=== PATIENT | male | born 1940 | race Caucasian/White ===

== ENCOUNTER → 2016-11-27 | Outpatient (CLI) | payer MEDICARE, OTHER ==
[~2016-11-27] MED LIST: ALLO300T2 PO; ATN25T PO; AZIT250T5 PO; CLOP75TA3 PO; COLE3.754 PO; IPRA12.92; NF-LISIN40 PO; NIAC1TBM27 PO; PRAM0.5T2 PO; SAXA1TBM3 PO; SITA1TBM7 PO; TIOT18CA; [UNRECOGNIZED DRUG - CODE] PO
== END ==
LOC: LAB 10:58
PROVIDERS: ATTEND Family Medicine
DX: E03.9 Hypothyroidism, unspecified (principal)
CPT/HCPCS: 36415; 84443

== ENCOUNTER 2017-03-30 17:18 | Inpatient (IN) | payer MEDICARE, OTHER ==
[~2017-03-30] VITALS: Ht 182.9 cm; Wt 101.2 kg
[2017-03-30] MEDS ORDERED: PANT40TA3 PO (17:30)
[2017-03-30] MEDS ORDERED: ATOR20TA PO (17:30)
[2017-03-30] MEDS ORDERED: METF500T4 PO ×2 (17:30)
[2017-03-30] MEDS ORDERED: ONDANSETRON 2 MG/ML (Z0FRAN) 2 ML VIAL IV ONE ×2 (17:30→18:15)
[2017-03-30] MEDS ORDERED: morphine INJ 4 MG/ML 1 ML SYRINGE IV PRN ×2 (17:35→20:50)
[2017-03-30] MEDS ORDERED: NIAC500T24 PO (17:40)
[2017-03-30] MEDS ORDERED: PIOG45TA16 PO (17:43)
[2017-03-30] MEDS ORDERED: nebulizer INH (17:44)
[2017-03-30 18:23] LABS: BASOPHILS % (AUTO) 0 % (0-2); EOSINOPHILS % (AUTO) 1 % (0-4); LYMPHOCYTES # (AUTO) 1.1 X10^3; MEAN PLATELET VOLUME 8.6 FL (6.0-9.5); MONOCYTES # (AUTO) 0.3 X10^3; MONOCYTES % (AUTO) 9 % (3-11); NEUTROPHILS # (AUTO) 2.3 X10^3; NEUTROPHILS % (AUTO) 61 % (51-67); PLATELET COUNT 172 10^3uL (150-450); WHITE BLOOD COUNT 3.76 10^3uL (4.0-11.0)
[2017-03-30 18:24] LABS: MEAN CORPUSCULAR HEMOGLOBIN 32.8 PG (26.0-34.0); MEAN CORPUSCULAR VOLUME 99 FL (80-100)
[2017-03-30 18:32] LABS: ALBUMIN 4.9 g/dL (3.4-5.0); ALKALINE PHOSPHATASE 52 U/L (38-126); ANION GAP 22.2 MEQ/L (3-15); BUN/CREATININE RATIO 20 (10-20); TOTAL PROTEIN 8.2 g/dL (6.4-8.5)
--- NOTE | 2017-03-30 18:45 | NUR ---
Report received, care assumed.
--- NOTE | 2017-03-30 18:46 | NUR ---
Report given to SIGRID Taylor. Questions answered and care relinquished.
[2017-03-30] MEDS ORDERED: NS IV 500 ML 500 ML IV SCH (19:10)
--- NOTE | 2017-03-30 19:13 | Diagnostic Imaging Report ---
CLINICAL INDICATION: Patient with chest and left shoulder pain. Patient has abdominal pain and vomiting at night. Patient reports history of ulcers and prostate cancer. EXAMS: X-ray of the chest PA view and x-ray of the abdomen supine and upright views. COMPARISONS: Chest x-ray dated 05/19/2016. FINDINGS: LUNGS/ PLEURA: Lungs are clear. There is no pneumothorax. There is no pleural effusion. MEDIASTINUM: Unremarkable. PULMONARY VASCULATURE: Unremarkable. HEART: Upper limits of normal heart size. BONES/ EXTRATHORACIC SOFT TISSUE: There are hypertrophic spurs seen throughout the thoracic spine and lumbar spine. There is a compression deformity of the L1 and L2 vertebral bodies which appears chronic. There is hypertrophic spurs involving both hips. ABDOMEN AND PELVIS: Unremarkable x-ray of the abdomen with nonobstructed bowel gas pattern. There is no evidence of abdominal free air. There is few loops of air filled small and large bowel. There are no dilated loops seen. There is no significant stool burden seen. There are no focal calcifications overlying the expected regions/ pathways of both kidneys, ureters, and bladder regions. Phleboliths seen in the right pelvis. IMPRESSION: 1: There is no radiographic evidence of acute cardiopulmonary process. 2: There is no evidence of bowel obstruction or intra-abdominal free air. There is no significant stool burden seen. Dictated by: Dictated on workstation # [id number]
--- NOTE | 2017-03-30 19:14 | Diagnostic Imaging Report ---
CLINICAL INDICATION: Patient with chest and left shoulder pain. EXAM: X-ray of left shoulder, 3 views. COMPARISON: None. FINDINGS: There is no evidence of acute fracture or dislocation. There is mild to moderately hypertrophic spurs involving the left glenoid rim and left acromioclavicular joint. There is mild spurring of the proximal left humeral head/neck junction region. IMPRESSION: 1.: There is no acute fracture or dislocation. 2: There is mild to moderate degenerative disease of the left shoulder. Dictated by: Dictated on workstation # [id number]
[2017-03-30 19:20] LABS: MAGNESIUM* 1.4 mg/dL (1.6-2.3)
[2017-03-30 19:21] LABS: CREATINE KINASE 261 U/L (55-170)
[2017-03-30 19:38] LABS: BILIRUBIN,URINE Negative (Negative); CLARITY,URINE Clear; COLOR,URINE Yellow; GLUCOSE, URINE (UA) Negative (Negative); LEUKOCYTE ESTERASE ,URINE Negative (Negative); UROBILINOGEN,URINE 0.2 mg/dL (0.2-1.0)
--- NOTE | 2017-03-30 20:11 | Diagnostic Imaging Report ---
Clinical indication: Patient with abdominal pain and vomiting at night. Patient reports a history of ulcers and prostate cancer. Exam: CT exam of the abdomen and pelvis is performed without IV or oral contrast using stone protocol. Comparisons: X-ray of the abdomen dated 03/30/2017. Findings: There is mild dependent atelectasis involving the posterior aspects of both lung bases. There are degenerative spurs involving both hips, the visualized lower thoracic spine, and the lumbar spine. The liver, spleen, pancreas, adrenal glands and gallbladder are unremarkable, as visualized. There is a 3.0 cm exophytic cyst involving the posterior inferior aspect of the left kidney. Otherwise, both kidneys are unremarkable. No hydronephrosis or urinary tract stones. There are several diverticula involving the sigmoid colon but no CT evidence of diverticulitis. There is nondilated air-fluid levels in small bowel which is nonspecific. There is no bowel wall thickening. There is no intraabdominal free air or free fluid. There is no lymphadenopathy. The bladder is partially fluid-filled. There is diffuse bladder wall thickening which is nonspecific. The prostate gland shows dystrophic calcification. Prostate gland is within normal limits for measurements. The extra abdominal and extra pelvic soft tissue structures are unremarkable. IMPRESSION: 1: There is no CT evidence of acute abdominal or pelvic process. There is no evidence of intestinal obstruction, ascites, or urinary tract stones. 2: Left renal cyst. 3: Diverticulosis with no CT evidence of diverticulitis. 4: There is diffuse bladder wall thickening with no measurable mass. This may possibly be related to incomplete distention. Cystitis also cannot be completely excluded, but there is no adjacent fat stranding. Dictated by: Dictated on workstation # [id number]
[2017-03-30] MEDS ORDERED: POLYETHYLENE GLYCOL 17 GM (MIRALAX) PACKET PO PRN (20:50)
[2017-03-30] MEDS ORDERED: ONDANSETRON 2 MG/ML (Z0FRAN) 2 ML VIAL IV PRN (20:50)
[2017-03-30] MEDS ORDERED: ACETAMINOPHEN 325 MG TAB (TYLENOL) PO PRN (20:50)
--- NOTE | 2017-03-30 20:50 | NUR ---
Pt admitted to Med/Surg Room 308. Taken by cart by Radha Fry RN. Report given to SIGRID Grey by SIGRID Peres.
[2017-03-30] MEDS ORDERED: DEXTROSE ORAL GEL (GLUTOSE 40%) 15 GM TUBE PO PRN (20:55)
[2017-03-30] MEDS ORDERED: GLUCAGON EMERGENCY 1 MG/KIT IM PRN (20:55)
[2017-03-30] MEDS ORDERED: ALBUTEROL 0.083% NEB SOLUTION 2.5 MG/3 ML VIAL INH ONE (20:55)
[2017-03-30] MEDS ORDERED: DEXTROSE 50% 25 GM/50 ML SYRINGE IV PRN (20:55)
--- NOTE | 2017-03-30 20:55 | NUR ---
Patient admitted to room 308 at this time. Telehospitalist in room to assess patient. Please see admission assessment part 1 & 2. Reporting no chest pain at this time.
[2017-03-30] MEDS: INSULIN LISPRO 1 UNIT/0.01 ML (HUMALOG) DOSE SC SCH (21:00)
[2017-03-30 21:07] VITALS: BP 130/53
[2017-03-30 21:09] VITALS: BP 130/53
--- NOTE | 2017-03-30 21:34 | History and Physical (E) ---
History & Physical PCP: Giovanni Issa MD CC: Left fshoulder pain/ chest wall pain; n/v/ x 1-2 weeks, melena HPI This is a 76 y/o w/ h/o DM type 2, HTN, HLD, Asthma and multiple other med issues who presents to ER tonight w/ left shoulder pain, left chest wall pain and n/v and decreased oral intake over the past one-two weeks. Patient states was dx'd w/ PUD recently and has long h/o PUD and started on PPI recently. Pt. states he has had n/v intermittently, neno w/ meals and has had melena but no BRBPR. Denies PRICE, SOA, dyspnea, diarrhea, hematemesis and denies change in bladder function. In ER patient started on IVFs, had CT abd/pelvis w/o contrast and was negative; EKG and troponin unremarkable as was CXR and left shoulder xray showed degenerative changes. On labs patient noted to have elevated BUN/Cr of 54/2.69 , elevated K of 6.3 and then on recheck was 6.1; Hgb = 10.2 and WBC = 3.7 and Plt = 172. stool occult negative. CP is reproducible w/ palpation as demonstrated by ED doc and by me w/ help of nursing via telemedicine. Patient admitted to the Hospitalist service for further evaluation and management. PMH: DM type 2, HTN, HLD, Hypothyroid, CAD w/ cath 5 years ago and no intervention, Asthma, Prostate Ca PSH: Cardiac cath as noted above ALLERGIES: Please see list at end of report. HOME MEDICATIONS: Please see list at end of report. FH: Brother w/ Prostate Ca; Brother w/ DM2, Mother w/ DM2 and Father with Prostate Ca SH: Lives by himself in a single family home; does his ADLs w/o problems; no tobacco or EtOH use ROS CONSTITUTION: Denies weight loss or gain. Denies fever or chills. HEENT: No change in vision or hearing. No sores in mouth, sore throat. CV: No palpitations. PULM: No cough, shortness of breath, difficulty breathing. GI: No constipation, or diarrhea. : No dysuria. No blood in urine. MS: No new muscle or joint aches and pains. NEURO: No numbness or tingling. No weakness. INTEG: No rashes, lesions, or sores. ENDO: No heat or cold intolerance. No polydipsia or polyuria. HEME/LYMPH: No easy bruising or bleeding. No swollen glands. PSYCH: No change in mood or behavior. OBJECTIVE V/S Vital Signs Date Time Temp Pulse Resp B/P Pulse Ox O2 Delivery O2 Flow Rate FiO2 03/30/17 21:09 96.8 57 18 130/53 98 Room air 57 GEN: Awake, alert, oriented, NAD HEENT: EOMI, PERRL, somewhat dry oral mucosa. CV: RRR S1 S2 normal with no murmur LUNGS: CTA B ABD: Soft, NT/ND with normal bowel sounds. EXTR: No C/C/E. Normal peripheral pulses. INTEG: No rash. NEURO: No focal motor neuro deficit. Weight: 101.5 kg LABS Laboratory Results Past 24 Hrs 03/30/17 18:15: Alanine Aminotransferase (ALT/SGPT) 26, Albumin 4.9, Albumin/Globulin Ratio 1.484, Alkaline Phosphatase 52, Anion Gap 22.2, Aspartate Amino Transf (AST/SGOT ) 27, BUN/Creatinine Ratio 20, Basophils # (Auto) 0.0, Basophils (%) (Auto) 0, Blood Urea Nitrogen 54, C-Reactive Protein < 0.50, Calcium Level 9.8, Calcium/ Ionized Calcium Ratio 4.0, Calculated Osmolality 289, Carbon Dioxide Level 15, Chloride Level 111, Creatine Kinase MB 3.0, Creatinine 2.69, Eosinophils # (Auto ) 0.0, Eosinophils (%) (Auto) 1, Estimat Glomerular Filtration Rate 28.1, Estimated GFR (Non- 23.3, Glucose Level 107, Hematocrit 30.90, Hemoglobin 10.2, Lipase 215, Lymphocytes # (Auto) 1.1, Lymphocytes (%) (Auto) 30 , Magnesium Level 1.4, Mean Corpuscular Hemoglobin 32.8, Mean Corpuscular Hemoglobin Concent 33.0, Mean Corpuscular Volume 99, Mean Platelet Volume 8.6, Monocytes # (Auto) 0.3, Monocytes (%) (Auto) 9, TM-Gya-O-Type Natriuretic Peptide 231, Neutrophils # (Auto) 2.3, Neutrophils (%) (Auto) 61, Phosphorus Level 5.2, Platelet Count 172, Potassium Level 6.3, Red Blood Count 3.11, Red Cell Distribution Width 13.1, Sodium Level 142, Total Bilirubin 0.7, Total Creatine Kinase 261, Total Protein 8.2, Troponin I < 0.012, White Blood Count 3.76 03/30/17 19:10: Potassium Level 6.1 03/30/17 19:20: Urine Bilirubin Negative, Urine Blood Negative, Urine Clarity Clear, Urine Collection Type Clean catch, Urine Color Yellow, Urine Glucose (UA) Negative, Urine Ketones Negative, Urine Leukocyte Esterase Negative, Urine Nitrite Negative, Urine Protein Negative, Urine Specific [place] 1.010, Urine Urobilinogen 0.2, Urine pH 5.0 03/30/17 19:30: Stool Occult Blood Negative 03/30/17 23:01: Anion Gap 14.9, BUN/Creatinine Ratio 20, Blood Urea Nitrogen 51, Calcium Level 9.1, Carbon Dioxide Level 18, Chloride Level 115, Creatinine 2.54, Estimat Glomerular Filtration Rate 30.1, Estimated GFR (Non- 24.8, Glucose Level 99, Potassium Level 5.9, Sodium Level 141, Troponin I < 0.012 MICRO IMAGING ASSESSMENT 1) Acute Renal Failure (JOSEPH) POA 2) Acute N/v and recent dx of PUD w melena and concern for possible Upper GI bleed 3) Acute Dehydration POA 4) Acute Hyperkalemia POA 5) Acute on Chronic Anemia POA 6) Acute chest wall pain and left shoulder pain 7) HTN 8) DM type 2 9) HLD 10) Hypothyroidism 11) h/o CAD 12) Asthma 13) Prostate Ca PLAN Admit to Hospitalist service IVFs that of NS at 100 cc/hour Labs in AM - CMP, CBC, Mg level BMP at 2300 Serial Troponins Telemetry Hold Lisinopril Hold Plavix Hold Metformin Correctional Scale Insulin Diabetic diet Protonix 40mg IV q 12 hours SCDs Prn Morphine for moderate-severe pain Prn Acetaminophen for mild pain/fever Albuterol per neb x one, then q 4 hours prn Supportive Care I discussed the plan of care with the patient and the patient verbalized understanding and agreement. Allergies/Home Medications Allergies: Coded Allergies: Penicillins (Verified Allergy, Unknown, 05/19/16) Reported Home Medications Scheduled ([nebulizer]) Unknown Dose INH TID (Reported) Atorvastatin (Lipitor) 20 MG PO DAILY (Reported) Clopidogrel Bisulfate (Plavix) 75 MG PO DAILY (Reported) Levothyroxine Sodium (Levothroid) 112 MCG PO DAILY (Reported) Lisinopril (Lisinopril) 40 MG PO BID (Reported) Metformin HCl (Metformin HCl) 500 MG PO HS (Reported) Metformin HCl (Metformin HCl) 1,000 MG PO DAILY (Reported) Niacinamide (Niacin) Unknown Dose PO BID (Reported) Pantoprazole Sod (Protonix Tab) 40 MG PO BID WITH MEALS (Reported) Pioglitazone HCl (Pioglitazone HCl) 45 MG PO DAILY (Reported) Discontinued Medications Allopurinol (Allopurinol) 300 MG PO DAILY (Reported) Discontinued Reason: Update list Atenolol (Atenolol) 25 MG PO DAILY (Reported) Discontinued Reason: Update list Azithromycin (Azithromycin) 250 MG PO DAILY Discontinued Reason: Update list Colesevelam HCl (Welchol) 3.75 GM PO DAILY (Reported) Discontinued Reason: Update list Ipratropium [place] (Atrovent HFA) (Reported) Discontinued Reason: Update list Niacin/Simvastatin (Simcor 1,000-20 Mg Tablet) 1 EACH PO HS (Reported) Discontinued Reason: Update list Pramipexole Di-HCl (Mirapex) 0.5 MG PO HS (Reported) Discontinued Reason: Update list Saxagliptin HCl/Metformin HCl (Kombiglyze XR 5-1,000 mg Tab) 1 EACH PO DAILY ( Reported) Discontinued Reason: Update list Sitagliptin Phos/Metformin HCl (Janumet XR 100-1,000 mg Tablet) 1 EACH PO DAILY (Reported) Discontinued Reason: Update list Tiotropium [place] (Spiriva) (Reported) Discontinued Reason: Update list Copies to: End of Report . ALEXANDER GUTIERREZ MD March 30, 2017 21:34
--- NOTE | 2017-03-30 21:40 | NUR ---
Pt in bed HOB 30 degrees in no distress on RA 99% Aerosol 2.5mg Albuterol/ns given via mp order for one time HR 59/51 RR 18/20 Tolerated treatment well
[2017-03-30] MEDS: PANTOPRAZOLE IV 40 MG in SODIUM CHLORIDE FLUSH 10 ML IV SCH (22:07)
[2017-03-30 23:32] LABS: ANION GAP 14.9 MEQ/L (3-15); BUN/CREATININE RATIO 20 (10-20)
[2017-03-30] MEDS ORDERED: ALBUTEROL 0.083% NEB SOLUTION 2.5 MG/3 ML VIAL INH PRN (23:55)
[2017-03-31 00:12] VITALS: BP 102/47
[2017-03-31 04:28] VITALS: BP 95/41
[2017-03-31 04:29] LABS: BASOPHILS % (AUTO) 0 % (0-2); EOSINOPHILS # (AUTO) 0.1 10^3uL; EOSINOPHILS % (AUTO) 2 % (0-4); LYMPHOCYTES # (AUTO) 1.2 X10^3; MEAN PLATELET VOLUME 8.5 FL (6.0-9.5); MONOCYTES # (AUTO) 0.3 X10^3; MONOCYTES % (AUTO) 8 % (3-11); NEUTROPHILS # (AUTO) 1.7 X10^3; NEUTROPHILS % (AUTO) 53 % (51-67); PLATELET COUNT 148 10^3uL (150-450); WHITE BLOOD COUNT 3.16 10^3uL (4.0-11.0)
[2017-03-31 04:32] LABS: MEAN CORPUSCULAR VOLUME 100 FL (80-100)
[2017-03-31 04:38] LABS: ANION GAP 16.6 MEQ/L (3-15); CALCULATED IONIZED CALCIUM 4.1 mg/dL (3.8-4.6); TOTAL PROTEIN 6.8 g/dL (6.4-8.5)
--- NOTE | 2017-03-31 06:41 | NUR ---
Patient rests in bed throughout night without needs, reports minimal shoulder pain and no chest pain. SaO2 >90% on room air throughout night. Morning glucose: 90. No needs at this time.
[2017-03-31] MEDS: INSULIN LISPRO 1 UNIT/0.01 ML (HUMALOG) DOSE SC SCH ×4 (07:30→21:00)
[2017-03-31 07:35] VITALS: BP 100/40
[2017-03-31] MEDS ORDERED: NS FLUSH 10 ML PRN IV (07:40)
[2017-03-31] MEDS ORDERED: NS FLUSH 3 ML PRN IV (07:40)
[2017-03-31] MEDS: PANTOPRAZOLE IV 40 MG in SODIUM CHLORIDE FLUSH 10 ML IV SCH ×2 (08:23→20:28)
[2017-03-31] MEDS: NS FLUSH 3 ML DAILY IV SCH (08:27)
--- NOTE | 2017-03-31 08:44 | NUR ---
NUTRITION ASSESSMENT Level 1 Patient: Hunter Retana Age/Sex: 76/M Date Screened: 03-31-17 Weight: 224.4#/102 kg Height: 72 inches Primary Diagnosis: acute renal failure Diet Order: medium diabetic Relevant labs: potassium 6.0, BUN 49, creatinine 2.71, glucose 90 Food allergies: N Nutrition Assessment Criteria Age over 80: N Body Mass Index (BMI) under 19: N Admission Screening Indicates Risk? 6 points Moderate/High Risk Diagnosis: 3 points TPN or PPN: N NPO or clear liquid diet: N Serum Glucose <70 or >180: N Hgb A1c >6.7: N/A Total: 9 points Risk Screen: __ Patient at low nutritional risk based on available data; reevaluate in 5-7 days __ Patient at moderate nutritional risk based on available data; reevaluate in 3-5 days _X_ Patient at high nutritional risk; complete Nutrition Assessment within 48 hours of admission.
[2017-03-31] MEDS ORDERED: LEVOTHYROXINE 125 MCG (LEVOTHROID) TABLET PO SCH (09:00)
[2017-03-31] MEDS ORDERED: NON-FORMULARY MEDICATION 1 EA EA (Atorvastatin (Lipitor) 20 MG) PO SCH (09:00)
[2017-03-31] MEDS: LEVOTHYROXINE 112 MCG PO SCH (09:35)
[2017-03-31] MEDS ORDERED: SODIUM POLYSTERENE SULF SUSP 15 GM/60 ML (KAYEXALATE) BTL PO ONE ×2 (10:00→14:20)
--- NOTE | 2017-03-31 10:23 | Progress Note (E) ---
Progress Note S: Awake and alert, no pain now. Just tired. No vomiting no abdominal pain O: I & O Past 24 hrs 03/31/17 07:00 Intake Total 852 ml Output Total 500 ml Balance 352 ml Intake Oral 100 ml IV Total 752 ml Output Urine Total 500 ml Vital Signs Date Time Temp Pulse Resp B/P Pulse Ox O2 Delivery O2 Flow Rate FiO2 03/31/17 08:00 82 03/31/17 07:35 97.5 20 100/40 98 Room air GEN: Awake, alert, oriented, NAD HEENT: EOMI, PERRL, somewhat dry oral mucosa. CV: RRR S1 S2 normal with no murmur LUNGS: CTA B ABD: Soft, NT/ND with normal bowel sounds. EXTR: No C/C/E. Normal peripheral pulses. INTEG: No rash. NEURO: No focal motor neuro deficit. Weight: 101.5 kg LABS Laboratory Results Past 24 Hrs 03/30/17 18:15: Alanine Aminotransferase (ALT/SGPT) 26, Albumin 4.9, Albumin/Globulin Ratio 1.484, Alkaline Phosphatase 52, Anion Gap 22.2, Aspartate Amino Transf (AST/SGOT ) 27, BUN/Creatinine Ratio 20, Basophils # (Auto) 0.0, Basophils (%) (Auto) 0, Blood Urea Nitrogen 54, C-Reactive Protein < 0.50, Calcium Level 9.8, Calcium/ Ionized Calcium Ratio 4.0, Calculated Osmolality 289, Carbon Dioxide Level 15, Chloride Level 111, Creatine Kinase MB 3.0, Creatinine 2.69, Eosinophils # (Auto ) 0.0, Eosinophils (%) (Auto) 1, Estimat Glomerular Filtration Rate 28.1, Estimated GFR (Non- 23.3, Glucose Level 107, Hematocrit 30.90, Hemoglobin 10.2, Lipase 215, Lymphocytes # (Auto) 1.1, Lymphocytes (%) (Auto) 30 , Magnesium Level 1.4, Mean Corpuscular Hemoglobin 32.8, Mean Corpuscular Hemoglobin Concent 33.0, Mean Corpuscular Volume 99, Mean Platelet Volume 8.6, Monocytes # (Auto) 0.3, Monocytes (%) (Auto) 9, TF-Rvc-V-Type Natriuretic Peptide 231, Neutrophils # (Auto) 2.3, Neutrophils (%) (Auto) 61, Phosphorus Level 5.2, Platelet Count 172, Potassium Level 6.3, Red Blood Count 3.11, Red Cell Distribution Width 13.1, Sodium Level 142, Total Bilirubin 0.7, Total Creatine Kinase 261, Total Protein 8.2, Troponin I < 0.012, White Blood Count 3.76 03/30/17 19:10: Potassium Level 6.1 03/30/17 19:20: Urine Bilirubin Negative, Urine Blood Negative, Urine Clarity Clear, Urine Collection Type Clean catch, Urine Color Yellow, Urine Glucose (UA) Negative, Urine Ketones Negative, Urine Leukocyte Esterase Negative, Urine Nitrite Negative, Urine Protein Negative, Urine Specific [place] 1.010, Urine Urobilinogen 0.2, Urine pH 5.0 03/30/17 19:30: Stool Occult Blood Negative 03/30/17 23:01: Anion Gap 14.9, BUN/Creatinine Ratio 20, Blood Urea Nitrogen 51, Calcium Level 9.1, Carbon Dioxide Level 18, Chloride Level 115, Creatinine 2.54, Estimat Glomerular Filtration Rate 30.1, Estimated GFR (Non- 24.8, Glucose Level 99, Potassium Level 5.9, Sodium Level 141, Troponin I < 0.012 IMAGING: The liver, spleen, pancreas, adrenal glands and gallbladder are unremarkable, as visualized. There is a 3.0 cm exophytic cyst involving the posterior inferior aspect of the left kidney. Otherwise, both kidneys are unremarkable. No hydronephrosis or urinary tract stones. There are several diverticula involving the sigmoid colon but no CT evidence of diverticulitis. There is nondilated air-fluid levels in small bowel which is nonspecific. There is no bowel wall thickening. There is no intraabdominal free air or free fluid. There is no lymphadenopathy. The bladder is partially fluid-filled. There is diffuse bladder wall thickening which is nonspecific. The prostate gland shows dystrophic calcification. Prostate gland is within normal limits for measurements. The extra abdominal and extra pelvic soft tissue structures are unremarkable. IMPRESSION: 1: There is no CT evidence of acute abdominal or pelvic process. There is no evidence of intestinal obstruction, ascites, or urinary tract stones. 2: Left renal cyst. 3: Diverticulosis with no CT evidence of diverticulitis. 4: There is diffuse bladder wall thickening with no measurable mass. This may possibly be related to incomplete distention. Cystitis also cannot be completely excluded, but there is no adjacent fat stranding ASSESSMENT Hunter is a 76 year old admitted with Nausea and vomiting and hyperkalemia and acute renal failure. His baseline creatinine is reported to be 1.[address] Giovanni Issa Acute N/v and recent dx of PUD w melena and concern for possible Upper GI bleed Acute Dehydration POA Acute Hyperkalemia POA Acute on Chronic Anemia POA Acute chest wall pain and left shoulder pain HTN DM type 2 HLD Hypothyroidism h/o CAD Asthma Prostate Ca PLAN Continue IV fluids, Kayexalate today, Discussed by phone with Dr Davila, his baseline creatinine is 1.3. Continue to re hydrate and observe for now- not active bleeding. Colleen Stewart [employer] March 31, 2017 10:23
--- NOTE | 2017-03-31 10:42 | NUR ---
NUTRITION ASSESSMENT Level II Patient: Hunter Retana Age/Sex: 76/M Date Assessed: 03-31-17 ASSESSMENT Pertinent History: Patient admitted with acute renal failure and screened at high nutritional risk secondary to diagnosis and weight loss compared with 10 months ago. PMHx includes diabetes, HTN, hypothyroidism, CAD, asthma and prostate cancer. He lives alone at home and reports n/v with poor intake over the past 2-3 weeks. Last documented weight was 260# in May 2016. Meds/Nutrition: Synthroid, Humalog, Protonix, NS Weight: 224.4#/102 kg Height: 72 inches Body Mass Index (BMI): 30.5 [place] Body Weight : 178#/80.9 kg % IBW: 126% GASTROINTESTINAL Appetite: stated poor [employer], but eating 75% so far Diet Order: medium diabetic Unintentional loss of >10 lbs. in 3 months: Yes Difficult to chew/swallow: N Diabetes: Yes Relevant Labs: potassium 6.0, BUN 49, creatinine 2.71, glucose 90 Calculations for Nutritional Assessment Estimated calorie needs: 22-25 kcals/kg = 2,240-2,550 kcals Estimated protein needs: 0.8-1.0 g/kg = 81-102 g./day DIAGNOSIS 1. Nutrition Diagnosis: Altered nutrition-related lab values related to renal failure as evidenced by acute renal failure with BUN/creatinine/potassium elevated. 2. Nutrition Diagnosis: Unintentional weight loss related to decreased appetite /intake as evidenced by reports of n/v/decreased intake x 2-3 weeks with 35# (13.6%) weight loss compared with 10 months ago. NUTRITIONAL INTERVENTION Goal: Patient will receive adequate nutrition to meet his needs and support optimal function. Plan: Will provide medium diabetic diet as ordered; consider limiting potassium in diet for now until hyperkalemia resolves. Also recommend protein intake be controlled to 81-102 g./day as calculated above for now, with regular reassessment to determine if protein needs should be higher. Noted that negative acute-phase reactant markers such as CRP and albumin are WNL. Also noted that abdominal CT was negative for acute process, obstruction or ascites. Will follow closely and adjust nutrition interventions as needed. MONITORING & EVALUATION _X_ Monitor patients menu selections _X_ Monitor patients food intake per nursing notes __ Monitor NPO/clear liquid days _X_ Monitor lab values __ Monitor I&O __ Other
[2017-03-31] MEDS: CLOPIDOGREL 75 MG (PLAVIX) TAB PO SCH (10:54)
[2017-03-31 11:43] VITALS: BP 98/52
--- NOTE | 2017-03-31 12:00 | NUR ---
Encouraged patient to get up in the chair for comfort. Educated him that during episodes of "chest pain" that squeeze and release straight up and down along the center of his chest, that he could be experiencing some esophageal spasms related to recently diagnosed ulcer disease. Patient complied and some relief of symptoms was noted.
[2017-03-31] MEDS ORDERED: MAG HYDROX/AL HYDROX/SIMETH 400-400-40/5 ML (MAG-AL PLUS XS) 30 ML UDC PO PRN (13:30)
[2017-03-31] MEDS ORDERED: morphine INJ 2 MG/ML 1 ML SYRINGE IV PRN (13:35)
[2017-03-31] MEDS ORDERED: LEVO112T4 PO (13:43)
[2017-03-31 15:29] VITALS: BP 99/46
[2017-03-31] MEDS ORDERED: FUROSEMIDE 40 MG/4 ML (LASIX) VIAL IV ONE (15:45)
--- NOTE | 2017-03-31 16:16 | Diagnostic Imaging Report ---
INDICATION: Renal failure. EXAMINATION: Single view of the chest was obtained. FINDINGS: Heart size and pulmonary vascularity are normal. Lungs are clear. There are no effusions or pneumothoraces. IMPRESSION: Negative chest. Dictated by: Dictated on workstation # [id number]
--- NOTE | 2017-03-31 16:30 | NUR ---
Patient ambulated a full lap around the ulrich with a walker and stand by assist of a [employer]. He has not had any BM's yet. 2 doses of Kayexalate have been given today. K+ continues to be high.
[2017-03-31 16:49] LABS: ANION GAP 19.2 MEQ/L (3-15)
[2017-03-31] MEDS: 0.45% SOD CHLORIDE (1/2 NS) 1,000 ML IV SCH (16:49)
[2017-03-31] MEDS: FUROSEMIDE 40 MG/4 ML (LASIX) VIAL IV SCH (16:51)
--- NOTE | 2017-03-31 17:30 | NUR ---
Patient voided 325 cc's and post void bladder scan result was 125 cc's.
[2017-03-31] MEDS ORDERED: IPRA3AMP11 INH (18:05)
--- NOTE | 2017-03-31 18:05 | NUR ---
MED REC COMPLETED-current med list obtained from Ext Med History application, retail pharmacy, and patient interview.
--- NOTE | 2017-03-31 18:22 | NUR ---
Patient had a large BM.
[2017-03-31 19:45] LABS: ANION GAP 17.3 MEQ/L (3-15)
[2017-03-31 20:08] VITALS: BP 97/51
[2017-03-31] MEDS ORDERED: ATORVASTATIN 10 MG (LIPITOR) TABLET PO SCH (21:00)
[2017-04-01] VITALS (7 sets, daily range): BP systolic 89–114; BP diastolic 43–55
[2017-04-01] MEDS: 0.45% SOD CHLORIDE (1/2 NS) 1,000 ML IV SCH ×2 (01:58→14:40)
--- NOTE | 2017-04-01 04:28 | NUR ---
1920-Pt has been up to restroom and had x-large BM, lab rechecked K+ and it has decreased to 5.6 at this time. Denies pain or discomfort at this time. IV is infusing without difficulty, no redness, swelling, or s/s of infection noted at this time. Call light is in reach, will continue to monitor. 0-Pt has been asleep most of this shift, does not appear to be in pain or discomfort at this time, Will continue to monitor.
[2017-04-01] MEDS: LEVOTHYROXINE 112 MCG PO SCH (05:18)
[2017-04-01 06:10] LABS: BASOPHILS % (AUTO) 0 % (0-2); EOSINOPHILS # (AUTO) 0.1 10^3uL; EOSINOPHILS % (AUTO) 3 % (0-4); LYMPHOCYTES # (AUTO) 0.8 X10^3; MONOCYTES # (AUTO) 0.3 X10^3; MONOCYTES % (AUTO) 9 % (3-11); NEUTROPHILS # (AUTO) 2.4 X10^3; NEUTROPHILS % (AUTO) 67 % (51-67); PLATELET COUNT 143 10^3uL (150-450); WHITE BLOOD COUNT 3.66 10^3uL (4.0-11.0)
[2017-04-01 06:34] LABS: MEAN CORPUSCULAR HEMOGLOBIN 32.6 PG (26.0-34.0); MEAN CORPUSCULAR VOLUME 99 FL (80-100)
[2017-04-01] MEDS: INSULIN LISPRO 1 UNIT/0.01 ML (HUMALOG) DOSE SC SCH ×4 (06:57→21:00)
[2017-04-01 07:03] LABS: ANION GAP 14.2 MEQ/L (3-15)
--- NOTE | 2017-04-01 08:15 | NUR ---
SpO2 97% on Room Air. BS clear, pt states "breathing well" no aerosol tx given.
[2017-04-01] MEDS: CLOPIDOGREL 75 MG (PLAVIX) TAB PO SCH (08:35)
[2017-04-01] MEDS: PANTOPRAZOLE IV 40 MG in SODIUM CHLORIDE FLUSH 10 ML IV SCH ×2 (08:36→20:17)
[2017-04-01] MEDS: FUROSEMIDE 40 MG/4 ML (LASIX) VIAL IV SCH ×2 (08:37→16:13)
[2017-04-01] MEDS: NS FLUSH 3 ML DAILY IV SCH (08:39)
--- NOTE | 2017-04-01 09:19 | NUR ---
Pt has been awake this morning- Ate breakfast and took AM meds without difficulty. IVF infusing as ordered. Pt ambulates with SBA using walker to shower at this time.
--- NOTE | 2017-04-01 09:40 | Diagnostic Imaging Report ---
EXAMINATION: Left knee, 2 views. COMPARISON: None. HISTORY: 76-year-old male, hypermobility of the left knee. FINDINGS: There is a prominent mature ossification subjacent to the lateral femoral condyle at its lateral aspect which measures approximately 3.6 x 1.1 cm in size. This is compatible with a chronic etiology. This potentially could relate to the sequela of remote prior injury. This projects lateral to the expected position of the popliteus tendon. It is considered less likely that this could relate to an ossified body within the popliteus tendon sheath. There is severe patellofemoral compartment joint space loss with small patellofemoral compartment osteophytes. The medial and lateral compartments are not significantly narrowed. There is a central osteophyte arising from the lateral aspect of the medial femoral condyle. There is no large knee joint effusion. No additional potential intra-articular body is identified. IMPRESSION: 1. Mature prominent ossification subjacent to the lateral aspect of the lateral femoral condyle which is favored to represent an area of heterotopic ossification relating to sequela from a prior injury. An ossified body within the popliteus tendon sheath is considered less likely as this projects outside the expected position of the popliteus tendon sheath radiographically. 2. 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 No large knee joint effusion. Dictated by: Dictated on workstation # [id number]
--- NOTE | 2017-04-01 10:07 | Progress Note (E) ---
Progress Note S: Awake O: I & O Cumulative 03/31/17 04/01/17 Cumulative From/Thru 19:00 07:00 03/30/17 17:22 - 04/01/17 06:10 Intake Total 2289 ml 1899 ml 5040 ml Output Total 725 ml 1125 ml 2350 ml Balance 1564 ml 774 ml 2690 ml Vital Signs Date Time Temp Pulse Resp B/P Pulse Ox O2 Delivery O2 Flow Rate FiO2 04/01/17 08:42 68 04/01/17 07:28 97.7 18 114/55 99 Room air GEN: Awake, alert, oriented, NAD HEENT: EOMI, PERRL, somewhat dry oral mucosa. CV: RRR S1 S2 normal with no murmur LUNGS: CTA B ABD: Soft, NT/ND with normal bowel sounds. EXTR: No C/C/E. Normal peripheral pulses. INTEG: No rash. NEURO: No focal motor neuro deficit. Weight: 101.5 kg LABS Laboratory Results Past 24 Hrs 03/30/17 18:15: Alanine Aminotransferase (ALT/SGPT) 26, Albumin 4.9, Albumin/Globulin Ratio 1.484, Alkaline Phosphatase 52, Anion Gap 22.2, Aspartate Amino Transf (AST/SGOT ) 27, BUN/Creatinine Ratio 20, Basophils # (Auto) 0.0, Basophils (%) (Auto) 0, Blood Urea Nitrogen 54, C-Reactive Protein < 0.50, Calcium Level 9.8, Calcium/ Ionized Calcium Ratio 4.0, Calculated Osmolality 289, Carbon Dioxide Level 15, Chloride Level 111, Creatine Kinase MB 3.0, Creatinine 2.69, Eosinophils # (Auto ) 0.0, Eosinophils (%) (Auto) 1, Estimat Glomerular Filtration Rate 28.1, Estimated GFR (Non- 23.3, Glucose Level 107, Hematocrit 30.90, Hemoglobin 10.2, Lipase 215, Lymphocytes # (Auto) 1.1, Lymphocytes (%) (Auto) 30 , Magnesium Level 1.4, Mean Corpuscular Hemoglobin 32.8, Mean Corpuscular Hemoglobin Concent 33.0, Mean Corpuscular Volume 99, Mean Platelet Volume 8.6, Monocytes # (Auto) 0.3, Monocytes (%) (Auto) 9, HT-Kkc-A-Type Natriuretic Peptide 231, Neutrophils # (Auto) 2.3, Neutrophils (%) (Auto) 61, Phosphorus Level 5.2, Platelet Count 172, Potassium Level 6.3, Red Blood Count 3.11, Red Cell Distribution Width 13.1, Sodium Level 142, Total Bilirubin 0.7, Total Creatine Kinase 261, Total Protein 8.2, Troponin I < 0.012, White Blood Count 3.76 03/30/17 19:10: Potassium Level 6.1 03/30/17 19:20: Urine Bilirubin Negative, Urine Blood Negative, Urine Clarity Clear, Urine Collection Type Clean catch, Urine Color Yellow, Urine Glucose (UA) Negative, Urine Ketones Negative, Urine Leukocyte Esterase Negative, Urine Nitrite Negative, Urine Protein Negative, Urine Specific [place] 1.010, Urine Urobilinogen 0.2, Urine pH 5.0 03/30/17 19:30: Stool Occult Blood Negative 03/30/17 23:01: Anion Gap 14.9, BUN/Creatinine Ratio 20, Blood Urea Nitrogen 51, Calcium Level 9.1, Carbon Dioxide Level 18, Chloride Level 115, Creatinine 2.54, Estimat Glomerular Filtration Rate 30.1, Estimated GFR (Non- 24.8, Glucose Level 99, Potassium Level 5.9, Sodium Level 141, Troponin I < 0.012 Laboratory Results Past 24 Hrs 03/31/17 12:00: Potassium Level 6.2 03/31/17 16:30: Potassium Level 5.9, Anion Gap 19.2, BUN/Creatinine Ratio 19, Blood Urea Nitrogen 43, Calcium Level 9.3, Carbon Dioxide Level 15, Chloride Level 115, Creatinine 2.29, Estimat Glomerular Filtration Rate 33.9, Estimated GFR (Non- 28.0, Glucose Level 114, Sodium Level 143 03/31/17 19:05: Potassium Level 5.6, Anion Gap 17.3, BUN/Creatinine Ratio 19, Blood Urea Nitrogen 43, Calcium Level 9.4, Carbon Dioxide Level 17, Chloride Level 114, Creatinine 2.27, Estimat Glomerular Filtration Rate 34.2, Estimated GFR (Non- 28.3, Glucose Level 127, Sodium Level 143 04/01/17 05:40: Potassium Level 5.1, Anion Gap 14.2, BUN/Creatinine Ratio 19, Blood Urea Nitrogen 38, Calcium Level 9.1, Carbon Dioxide Level 20, Chloride Level 113, Creatinine 2.05, Estimat Glomerular Filtration Rate 38.5, Estimated GFR (Non- 31.8, Glucose Level 104, Sodium Level 143, Basophils # (Auto) 0.0, Basophils (%) (Auto) 0, Eosinophils # (Auto) 0.1, Eosinophils (%) (Auto) 3 , Hematocrit 28.80, Hemoglobin 9.5, Lymphocytes # (Auto) 0.8, Lymphocytes (%) ( Auto) 21, Mean Corpuscular Hemoglobin 32.6, Mean Corpuscular Hemoglobin Concent 33.0, Mean Corpuscular Volume 99, Mean Platelet Volume 9.0, Monocytes # (Auto) 0.3, Monocytes (%) (Auto) 9, Neutrophils # (Auto) 2.4, Neutrophils (%) (Auto) 67 , Platelet Count 143, Red Blood Count 2.91, Red Cell Distribution Width 12.9, Total Creatine Kinase 199, White Blood Count 3.66 IMAGING: The liver, spleen, pancreas, adrenal glands and gallbladder are unremarkable, as visualized. There is a 3.0 cm exophytic cyst involving the posterior inferior aspect of the left kidney. Otherwise, both kidneys are unremarkable. No hydronephrosis or urinary tract stones. There are several diverticula involving the sigmoid colon but no CT evidence of diverticulitis. There is nondilated air-fluid levels in small bowel which is nonspecific. There is no bowel wall thickening. There is no intraabdominal free air or free fluid. There is no lymphadenopathy. The bladder is partially fluid-filled. There is diffuse bladder wall thickening which is nonspecific. The prostate gland shows dystrophic calcification. Prostate gland is within normal limits for measurements. The extra abdominal and extra pelvic soft tissue structures are unremarkable. IMPRESSION: 1: There is no CT evidence of acute abdominal or pelvic process. There is no evidence of intestinal obstruction, ascites, or urinary tract stones. 2: Left renal cyst. 3: Diverticulosis with no CT evidence of diverticulitis. 4: There is diffuse bladder wall thickening with no measurable mass. This may possibly be related to incomplete distention. Cystitis also cannot be completely excluded, but there is no adjacent fat stranding ASSESSMENT Hunter is a 76 year old admitted with Nausea and vomiting and hyperkalemia and acute renal failure. His baseline creatinine is reported to be 1.[address] Goivanni Issa Acute N/v and recent dx of PUD w melena and concern for possible Upper GI bleed Acute Dehydration POA Acute Hyperkalemia POA Acute on Chronic Anemia POA Acute chest wall pain and left shoulder pain HTN DM type 2 HLD Hypothyroidism h/o CAD Asthma Prostate Ca PLAN Continue IV fluids, Kayexalate today, Discussed by phone with Dr Davila, his baseline creatinine is 1.3. Continue to re hydrate and observe for now- not active bleeding. p.t. to visit and evaluate leg strength. March 31, 2017 10:23 JASKARAN GOLDMAN DO April 01, 2017 10:07
--- NOTE | 2017-04-01 15:33 | NUR ---
Pt had pulled 20g IV out of [facility]- tip intact. Camila Inman RN from [facility] came to room- 22g IV started to LFA. IVF infusing without difficulty.
--- NOTE | 2017-04-01 16:34 | Physical Therapy Evaluation(E) ---
Plan of Care STG: Plan-Treatment Functional: Amb Safe w/ AD on level STG Time Frame: 3 Days Goals Discussed/Agreed: Yes Plan: Balance, Gait & Transfer Training, Neuro Re-Education, Strengthening, Transfer Training, Therapy Excercise Aware of Dx and Prognosis: Yes Aware of Risk & Benefit: Yes To be Seen: Daily Wednesday-Wednesday (PT would recommend gait/balance/ prorioceptive training via home health or outpatient PT secondary to patient's balance dysfunction and absent light touch/deep pressure sensation. ) Initial Evaluation Service Date/Time 04/01/17, 16:28 Primary Diagnosis: (1) Asthma (2) Acute renal failure (ARF) ICD Code: N17.9 Treatment Diagnosis: (1) Acute renal failure (ARF) ICD Code: N17.9 (2) Asthma Onset Date: 03/30/2017 Start of Care Date: April 01, 2017 Resuscitation Status: Full Code Precaution/Isolation: Standard Precautions Fall Level: Low Risk 25-50 Initial Assessment Reason for Rehab: Increase Strength, Increase Balance, Increase Transfers, Increase Endurance Medical History: Cancer (prostate cancer), DM, Hypertension, Other Pain Location/Comment Patient denies pain. Prior Level of Function The patient lives at home alone. He reports he does have a cane or walker to use at home but doesn't use them that often. Pt will hx of falls. He reports still driving and being independent with ADLS. Rehabilitation Potential: Fair Comment Tinetti Balance Assessment standing 10/30, gait portion 06/26 for a total of putting him in a moderate fall risk category and we would recommend daytime babysitter use of assistive device for balance. Assistive Device: FWW Distance Walked in Feet 313 feet with FWW Assist: Min Assist/Contact Guard Gait Description: Uneven Weight Shift Decreased push off Gait Limitations: Fatigue Patient require verbal cues for walker management. ROM/Strength Hip Mobility: Right Hip Strength: 5 Left Hip Strength: 5 Knee Flexion Mobility: Right Knee Flexion Strength: 5 Left Knee Flexion Strength: 5 Knee Extension Mobility: Right Knee Extension Strength: 5 Left Knee Extension Strength: 5 Ankle Mobility: Right Ankle Strength: 5 Left Ankle Strength: 5 Assessment/Goals Initial Transfer Assessment Rolling: Not Assessed/NA Sit-Supine: Not Assessed/NA Sitting Edge of Bed: Supervision or setup Supine-Sit: Not Assessed/NA Sit-Stand from Bed: Contact Guard Assist Stand-Sit: Contact Guard Assist Ambulation: Contact Guard Assist Distance Walked in Feet 313 feet Comment Patient has absent and light touch sensation in distal lower extremities, which effects his proprioception. Transfer Short Term Goals Rolling: Modified [place] Sit-Supine: Modified [place] Sitting Edge of Bed: Modified [place] Sit-Stand from bed: Modified [place] Stand-Sit: Modified [place] Ambulation: Modified [place] Distance to Walk in Feet 500 feet with FWW, 50 feet without AD to further assess gait. Coding Time In: 1420 Time Out: 1444 Total Minutes: 24 Charges: 86755 Eval< 20 min, 60080 Gait Training 15 mi KEITH SEGURA PT April 01, 2017 16:34
--- NOTE | 2017-04-01 17:57 | NUR ---
Pt calls appropriately for assist in emptying urinal after voiding. Sitting upright in chair eating supper meal. Talked to daughter on phone this afternoon. Pleasant/cooperative to staff.
--- NOTE | 2017-04-01 18:00 | NUR ---
INCREASE THE INFUSION RATE OF THE IVIG TO 211 ML/HR. PATIENT IS TOLERATING INFUSION WELL. Addendum: 04/01/17 at 1810 by Mike Saba RN THIS NOTE WAS WRITTEN ON TOMMY MACEDO
[2017-04-02] MEDS: 0.45% SOD CHLORIDE (1/2 NS) 1,000 ML IV SCH (01:16)
[2017-04-02 03:58] VITALS: BP 100/50
[2017-04-02] MEDS: LEVOTHYROXINE 112 MCG PO SCH (06:07)
--- NOTE | 2017-04-02 06:30 | NUR ---
Patient rests in bed throughout night without needs. Utilizes urinal as needed. This AM, concerned about medications that have been held ("diabetic medication, long pink one for gout, and one more") and states that he would like to know the rational behind these. No pain reported this shift. No needs at this time.
[2017-04-02] MEDS: INSULIN LISPRO 1 UNIT/0.01 ML (HUMALOG) DOSE SC SCH ×2 (07:25→11:28)
[2017-04-02 08:09] VITALS: BP 115/64
[2017-04-02 08:41] LABS: ANION GAP 16.2 MEQ/L (3-15)
[2017-04-02] MEDS: CLOPIDOGREL 75 MG (PLAVIX) TAB PO SCH (08:43)
[2017-04-02] MEDS: FUROSEMIDE 40 MG/4 ML (LASIX) VIAL IV SCH (08:43)
[2017-04-02] MEDS: PANTOPRAZOLE IV 40 MG in SODIUM CHLORIDE FLUSH 10 ML IV SCH (08:44)
[2017-04-02] MEDS: NS FLUSH 3 ML DAILY IV SCH (08:44)
--- NOTE | 2017-04-02 09:38 | Discharge Instructions (E) ---
Discharge Instructions Instructions see pcp per conversation in two weeks Activity Instructions as tolerated Doctor's Appointment Dr. Colby Puri April 05 at 2pm Discharge Diet: Carbohydrate controlled JASKARAN GOLDMAN DO April 02, 2017 09:38
[2017-04-02] MEDS ORDERED: PANT40TA3 PO (09:49)
--- NOTE | 2017-04-02 10:10 | NUR ---
The patient is up in chair watching television. Discharge orders read and pharmacy notified. The patient will be leaving at approximately 12:00 PM
[2017-04-02 11:28] VITALS: BP 124/78
--- NOTE | 2017-04-02 11:44 | NUR ---
Reviewed discharge medications with patient. Provided patient handout information for new medications. No additional questions or concerns. Patient verbalized understanding of medications.
--- NOTE | 2017-04-02 11:49 | NUR ---
Change in medications were discussed with patient and he confirmed that he would receive further clarification from his PCP. IV removed at this time. Patient is up in chair fully dressed and prepared for dismissal.
--- NOTE | 2017-04-02 13:13 | NUR ---
The patient is escorted out of the building by staff and family at this time. Care relinquished.
--- NOTE | 2017-04-02 13:36 | Discharge Summary (E) ---
Discharge Summary (A) Admit Date/Time March 30, 2017 at 20:55 Discharge Date/Time April 02, 2017 at 13:11 Admitting Provider Logan Mcdaniels MD Primary Care Provider Giovanni Issa MD Attending Provider Yovana Martinez D.O.. Consulting Provider none Admission Diagnosis hyperkalemia, chest pain , ckd III. left knee weak. History and Present Illness Patient has not been feeling well for two mos, i.e. weak and falling and c.c. left leg weak and knee unstable. Somewhat confused re home med use and diet to follow. some n/v initially which had dehydrated the patient and he had continued taking meds with acd and hctz, metforman. Hospital Course and Treatment The initial acute problem was identified as hyperkalemia 6.4 and elevated cr. and bun. Once the pt was hydrated and metforman and diuretic was withheld and Kayexalate administered twice the potassium returned to normal levels. We then turned attention to knee problem and pt consult and knee left, x=rays studied I think that pt needs left knee ct andperhaps a stabilizing knee brace. Next blood sugars were controlled and n/v stopped Met danilo witheld at this time and this issue will be re visited with pcp and cmp repeat on April 05 at 2;00pm Currently clical stability is obtained . Procedures x-rays, iv fluids and K followed and pt consult see report. Fluids iv n/s to hydrate and resolve K issue and control of renal function which has returned to normal. Diet- carb restriction Code Status-full DVT prophylaxis- stopped Disposition- home Discharge Physicial Exam Physical Exam General--Awake and alert. No distress. HEENT--Normocephalic. MMM in oral cavity. Lungs--Clear to auscultation bilaterally. Nonlabored respirations. Heart--RRR. No murmurs. Abdomen--Normal bowel sounds. Soft. Nondistended. Nontender. Discontinued Medications Allopurinol (Allopurinol) 300 MG PO DAILY (Reported) Discontinued Reason: Update list Atenolol (Atenolol) 25 MG PO DAILY (Reported) Discontinued Reason: Update list Azithromycin (Azithromycin) 250 MG PO DAILY Discontinued Reason: Update list Colesevelam HCl (Welchol) 3.75 GM PO DAILY (Reported) Discontinued Reason: Update list Ipratropium [place] (Atrovent HFA) (Reported) Discontinued Reason: Update list Niacin/Simvastatin (Simcor 1,000-20 Mg Tablet) 1 EACH PO HS (Reported) Discontinued Reason: Update list Pramipexole Di-HCl (Mirapex) 0.5 MG PO HS (Reported) Discontinued Reason: Update list Saxagliptin HCl/Metformin HCl (Kombiglyze XR 5-1,000 mg Tab) 1 EACH PO DAILY ( Reported) Discontinued Reason: Update list Sitagliptin Phos/Metformin HCl (Janumet XR 100-1,000 mg Tablet) 1 EACH PO DAILY (Reported) Discontinued Reason: Update list Tiotropium [place] (Spiriva) (Reported) Discontinued Reason: Update list Extremities--No edema. movement adequate at this time. Radiology/Laboratory Data Laboratory Results Past 24 Hrs 04/02/17 07:50: Anion Gap 16.2, BUN/Creatinine Ratio 19, Blood Urea Nitrogen 35, Calcium Level 9.0, Carbon Dioxide Level 21, Chloride Level 110, Creatinine 1.81, Estimat Glomerular Filtration Rate 44.4, Estimated GFR (Non- 36.7, Glucose Level 102, Potassium Level 4.6, Sodium Level 142 Discharge Provider's Instructions see pcp per conversation in two weeks Activity Guidelines as tolerated Appointment ReminiDurbin WedApril 05 at 2pm Discharge Diet: Carbohydrate controlled Follow up Follow up Referrals: [facility] - 04/05/17 @ [facility] with Giovanni Issa Md Wedapril 05 at 200pm Discharge Diagnosis renal failure resolved hyperkalemia resolved left knee hyperextension anterior to continue pt and observe over the next few mos. Copies to: End of Report pt. alert and ambulatory at this time. . JASKARAN GOLDMAN DO April 02, 2017 13:36
== END 2017-04-02 13:11 | disposition home or self-care (01) | DRG 641 ==
LOC: ED 17:19 → MED/SURG 20:55
PROVIDERS: ADMIT Internal Medicine; ATTEND Internal Medicine
DX: E87.5 Hyperkalemia (principal); N17.9 Acute kidney failure, unspecified; E86.0 Dehydration; D64.9 Anemia, unspecified; M25.362 Other instability, left knee; K27.9 Peptic ulcer, site unspecified, unspecified as acute or chronic, without hemorrhage or perforation; M25.512 Pain in left shoulder; E11.22 Type 2 diabetes mellitus with diabetic chronic kidney disease; I12.9 Hypertensive chronic kidney disease with stage 1 through stage 4 chronic kidney disease, or unspecified chronic kidney disease; N18.3 Chronic kidney disease, stage 3 (moderate); I25.10 Atherosclerotic heart disease of native coronary artery without angina pectoris; Z79.02 Long term (current) use of antithrombotics/antiplatelets; Z79.84 Long term (current) use of oral hypoglycemic drugs; Z85.46 Personal history of malignant neoplasm of prostate
CPT/HCPCS: 36415; 71010; 73030; 73560; 74022; 74176; 80048; 80053; 81003; 82550; 82553; 83036; 83690; 83735; 83880; 84100; 84132; 84484; 85025; 86140; 93005; 93010; 94762; 96361; 96374; 96375; 96376; 99285